=== PATIENT | female | born 1990 | race Caucasian/White ===

== ENCOUNTER 2024-01-21 01:48 | Emergency (ER) | payer MEDICAID ==
[~2024-01-21] VITALS: Ht 162.6 cm; Wt 50.0 kg
[2024-01-21 02:00] VITALS: BP 108/78; PULSE 101; RESP 18; TEMP 98.3; O2SAT 99
[2024-01-21] MEDS ORDERED: CEPH-585 PO (09:52)
== END 2024-01-21 04:36 | disposition left against medical advice (07) ==
LOC: ER 01:49
DX: S90.912A Unspecified superficial injury of left ankle, initial encounter (principal); Z53.21 Procedure and treatment not carried out due to patient leaving prior to being seen by health care provider; L02.612 Cutaneous abscess of left foot; X58.XXXA Exposure to other specified factors, initial encounter; Y93.89 Activity, other specified; Y92.89 Other specified places as the place of occurrence of the external cause; Y99.8 Other external cause status

== ENCOUNTER 2024-01-21 09:09 | Emergency (ER) | payer MEDICAID ==
[~2024-01-21] VITALS: Ht 162.6 cm; Wt 50.5 kg
[2024-01-21] MEDS ORDERED: CEPH-585 PO (09:52)
[2024-01-21 09:58] VITALS: BP 118/78; PULSE 88; RESP 18; TEMP 98.8; O2SAT 99
== END 2024-01-21 09:59 | disposition home or self-care (01) ==
LOC: ER 09:09
DX: S90.812A Abrasion, left foot, initial encounter (principal); F12.90 Cannabis use, unspecified, uncomplicated; F32.A Depression, unspecified; Z88.8 Allergy status to other drugs, medicaments and biological substances; Y93.39 Activity, other involving climbing, rappelling and jumping off; Y93.89 Activity, other specified; Y92.89 Other specified places as the place of occurrence of the external cause; Y99.8 Other external cause status
CPT/HCPCS: 73630; 99283